=== PATIENT | female | born 1975 | race Caucasian/White ===

== ENCOUNTER 2018-01-29 15:04 | Emergency (ER) | payer BC ==
[2018-01-29 15:20] VITALS: TEMP 98.6; BMI 30.9
[2018-01-29] MEDS ORDERED: SODIUM CHLORIDE 0.9% 500 ML INFUS.BAG IV ONE (16:35)
--- NOTE | 2018-01-29 16:36 | PDOC ---
History of Present Illness - General History Source: Patient Exam Limitations: No Limitations - History of Present Illness Initial Comments: 01/29/18 16:48 The patient is a 42 year old female, with a significant past medical history of ulcerative colitis, GERD, arthritis and hypertension, who presents to the emergency department with dizziness and lightheadedness, sent from Urgent Care for abnormal EKG evaluation. Patient reports she recently started the Keto diet and has been taking dietary supplements a fat burner over the past week. Patient reports she has lost 9 pounds since the start of her diet. However, patient reports she noted mild jaw, ear, and chest discomfort since starting her diet. Patient describes her chest discomfort as a pressure with associated sob with exertion. At the time, the patient had an ECG done which was negative. However, today patient reports new onset of lightheadedness when bending over and dizziness as if the room were spinning with head movement. Patient reports her dizziness was similar to her previous vertigo episodes. However, on evaluation at urgent care patient had an EKG, which revealed changes since last week. The patient denies any recent fever, chills, cough, or headache. She reports some nausea and loose stools since starting her diet, but denies any abdominal pain, vomiting, diarrhea, constipation, melena, or hematochezia. She denies any recent travel or sick contacts. Patient denies any OCP use, or history of blood clots/DVT/ cardiac issues. Allergies: Codeine Past Surgical History: Ovarian cyst removal, bilateral lumpectomy Social History: Non smoker. No ETOH or recreational drug use Wire Splicer: Dr. Madden <Kosta Murcia - Last Filed: 01/29/18 16:49> <Erin Rice - Last Filed: 01/29/18 18:21> - General Chief Complaint: Lightheaded Stated Complaint: DIZZINESS, ABNORMAL EKG Time Seen by Provider: 01/29/18 16:15 Past History <Kosta Murcia - Last Filed: 01/29/18 16:49> - Past Medical History COPD: No GI Disorders: Yes (REFLUX) HTN: Yes - Suicide/Smoking/Psychosocial Hx Smoking History: Former smoker Have you smoked in the past 12 months: No Information on smoking cessation initiated: No Hx Alcohol Use: No Drug/Substance Use Hx: No Substance Use Type: None Hx Substance Use Treatment: No <Erin Rice - Last Filed: 01/29/18 18:21> - Past Medical History Allergies/Adverse Reactions: Allergies Allergy/AdvReac Type Severity Reaction Status Date / Time codeine AdvReac Mild change Unverified 01/29/18 15:20 mental status Home Medications: Ambulatory Orders Balsalazide Disodium 2,250 mg PO BID 07/29/15 Omeprazole [Prilosec (RX)] 20 mg PO DAILY 07/29/15 Azathioprine [Imuran] 50 mg PO DAILY 01/29/18 Valsartan [Diovan] 80 mg PO DAILY 01/29/18 Review of Systems - Review of Systems Able to Perform ROS?: Yes Comments:: 01/29/18 16:49 GENERAL/CONSTITUTIONAL: No fever or chills. No weakness. no sweats. HEAD, EYES, EARS, NOSE AND THROAT: +Ear and jaw discomfort. No change in vision or hearing. No ear discharge. No sore throat pain. No difficulty swallowing. No congestion. CARDIOVASCULAR: +Chest pressure, mild sob, lightheadedness. No palpitations, syncope or edema. RESPIRATORY: +Mild sob with exertion. No cough, wheezing, or hemoptysis. GASTROINTESTINAL: +Nausea. No vomiting. No diarrhea or constipation. No bloody stools. GENITOURINARY: No hematuria, dysuria, frequency, urgency or other changes. MUSCULOSKELETAL: No joint or muscle swelling or pain. No neck or back pain. SKIN: No rash or changes in skin color or lesions. NEUROLOGIC: +Vertigo. No headache, loss of consciousness, or change in strength /sensation. No gait instability. ENDOCRINE: No increased thirst. No abnormal weight or appetite change or intolerance to heat/cold. HEMATOLOGIC/LYMPHATIC: No anemia, easy bruising/bleeding, or history of blood clots. ALLERGIC/IMMUNOLOGIC: No hives or skin allergy. All other systems reviewed and negative, or as documented in HPI. <Kosta Murcia - Last Filed: 01/29/18 16:49> *Physical Exam - Vital Signs Last Vital Signs Temp Pulse Resp BP Pulse Ox 98.6 F 95 H 20 152/94 99 01/29/18 15:13 01/29/18 15:13 01/29/18 15:13 01/29/18 15:13 01/29/18 15:13 - Physical Exam Comments: 01/29/18 16:49 General: Well appearing, awake and alert, NAD. HEENT: NCAT, PERRL, EOMI, clear conjunctiva, anicteric, moist mucus membranes, clear oropharynx, no oral lesions.. Airway patent, normal phonation Neck: neck supple, FROM, no JVD, LAD or masses Lungs: CTAB, normal and even respirations, no respiratory distress Heart: RRR, no murmurs, 2+ peripheral pulses throughout, no peripheral edema Abdomen: soft, NTND, no peritoneal signs. No CVAT Back: nontender, normal inspection and ROM MSK: no edema, LOMBARDI x4, ROM intact. No clubbing or cyanosis. normal bulk and tone. Neuro: alert, oriented appropriately; no focal neurologic deficits. SILT, 5/5 distal and prox strength in all extrem. Skin: warm and well perfused, cap refill <2 sec, normal color; no rash <Kosta Murcia - Last Filed: 01/29/18 16:49> - Vital Signs Last Vital Signs Temp Pulse Resp BP Pulse Ox 98.6 F 95 H 20 152/94 99 01/29/18 15:13 01/29/18 15:13 01/29/18 15:13 01/29/18 15:13 01/29/18 15:13 <Erin Rice - Last Filed: 01/29/18 18:21> Heart Score/ECG Review - History History: Slightly suspicious - Electrocardiogram EKG: Normal - Age Age: </= 45 - Risk Factors Risk Factors Heart Score: Yes Hx Hypertension Based on the list above the patient has:: 1-2 risk factors - Troponin Troponin: </= normal limit - Score Heart Score - Total: 1 - ECG Intrepretation Rhythm: Regular Rhythm - [place]: Normal - ECG Impressions Normal ECG: Yes Comment:: 01/29/18 17:29 EKG normal sinus rhythm with upright T waves, normal axis, normal narrow QRS and normal intervals, no ST segment derangements. <Erin Rice - Last Filed: 01/29/18 18:21> ED Treatment Course - LABORATORY CBC & Chemistry Diagram: 01/29/18 16:50 01/29/18 16:50 - RADIOLOGY Radiology Studies Ordered: Category Date Time Status CHEST PA & LAT [RAD] Stat Radiology 01/29/18 16:07 Ordered <Erin Rice - Last Filed: 01/29/18 18:21> Medical Decision Making - Medical Decision Making 01/29/18 17:29 42 YOF with GERD, UC on azathioprine and remission, HTN, vertigo and arthritis presenting with dizziness/lightheadedness, sent in from [facility] for abnormal EKG. today, when she was bending down, felt lightheadedness, sat down and felt improved. +vertigo with head movements. No trauma or recent illnesses. About 3 days ago, experienced chest pressure and sob with mild exertion; no OCP use ( IUD in place), no history of blood clots/DVT or PE, no syncope or leg swelling. Of note, has been on Ketogenic diet x 1 week, new dietary changes with weight loss of 9 lbs; otherwise staying hydrated. Meds and supplements she has been taking include merrick super with biotin, fat burner with decaff green tea extract , calcium and Vit D/magnesium, omega 3 with antioxidants. No caffeine use or overuse. DDx includes chest pain NOS, ACS, PE, costochondritis, GERD, pleurisy, anxiety, esophageal spasm. Medication side effect, orthostatic changes, dehydration. Low suspicion for pulmonary embolism or dissection. Low Wells score at Zero, so low risk and low clinical suspicion based on Gestalt for PE/VTE, defer D dimer at this time given clinical appearance. There is alternative etiology, with recent ketogenic diet and new supplements that may be contributing to her symptoms. Vital signs reviewed, wnl. notable for heart rate 90s, normotensive, SpO2 100% on RA. Plan: CBC, CMP, lipase, ECG, trop, bnp, CXR laboratory results and imaging reviewed, basic labs and lytes wnl, notable also for neg trop and BNP, essentially ruling out CHF/cardiomyopathy. EKG normal sinus rhythm with upright T waves, normal axis, normal narrow QRS and normal intervals, no ST segment derangements. No Wellens sign on 2 EKGs performed in the department. Low Heart score 1, so low risk for MACE <1.7% at 30 days. one trop sufficient which is neg, prior ekgs also reviewed from urgent care, isolated and no reciprocals or reproduced appearance. reassuringly, had treadmill stress test in October 2017 that was also normal CXR clear, no effusion or cardiomegaly or infiltrate. Given IVF here, VS wnl, HR downtrending, feels well, no respiratory distress, reassurance given. Neg orthostatics. tylenol for jaw pain/sinus pressure. She does appear anxious, but no cp or dyspnea. Nontoxic appearing, in stable condition. Discharge in stable condition, has date puller appt in [address] Mohan, advised to avoid precipitants and triggers and new supplements that can precipitate her symptoms, avoid until cardiology clearance and PMD followup (Dr. Madden). Patient and family made aware of impression and plan, return precautions discussed (including but not limited to worsening pain or symptoms), fevers, or signs of infection, chest pain, respiratory distress, inability to tolerate oral intake, dehydration, syncope, or neurologic changes worse dizziness/vertigo). Follow up with PMD and/or specialist as recommended, follow up information provided, take medications as instructed for duration of time. continue with supportive care, avoid triggers and precipitants. 01/29/18 17:30 01/29/18 17:31 01/29/18 17:55 01/29/18 18:19 <Erin Rice - Last Filed: 01/29/18 18:21> *DC/Admit/Observation/Transfer - Attestations Scribe Attestion: 01/29/18 16:49 Documentation prepared by Kosta Murcia, acting as medical records manager for Erin Rice MD. <Kosta Murcia - Last Filed: 01/29/18 16:49> - Discharge Dispostion Decision to Admit order: No <Erin Rice - Last Filed: 01/29/18 18:21> Diagnosis at time of Disposition: Dizziness, Medication side effect - Discharge Dispostion Disposition: HOME Condition at time of disposition: Stable - Referrals Referrals: Amy Madden [Staff Physician] - Yeyo Mohan MD [Staff Physician] - - Patient Instructions Printed Discharge Instructions: DI for Dizziness-Nonvertigo Additional Instructions: Follow up with your physician and consultants as instructed (date puller), call sooner for appointment, take your medications as instructed including motrin/tylenol as needed. do not take any additional supplements for your ketogenic diet until clearance. rest and hydration advised Return if worsening symptoms including fevers, headache, vomiting, visual or hearing disturbances, worse headaches, dizzy/vertigo, abdominal pain, chest pain , shortness of breath, syncope or worsening concerning symptoms. Print Language: LUXEMBOURGER
[2018-01-29 16:59] LABS: BASO % 1.1 % (0-2.0); EOS % 1.9 % (0-4.5); HEMATOCRIT 43.6 % (32.4-45.2); HEMOGLOBIN 14.6 GM/dL (10.7-15.3); LYMPH % 12.1 % (8-40); MCH 30.2 pg (25.7-33.7); MCHC 33.5 g/dl (32.0-36.0); MEAN CELL VOLUME 90.2 fl (80-96); MEAN PLT VOLUME 7.9 fl (7.5-11.1); MONO % 5.4 % (3.8-10.2); NEUT % 79.5 % (42.8-82.8); PLATELET COUNT 308 K/MM3 (134-434); RBC 4.84 M/mm3 (3.60-5.2); RDW 13.3 % (11.6-15.6)
[2018-01-29 17:21] LABS: ALBUMIN 4.1 g/dl (3.4-5.0); ANION GAP 11 (8-16); BILIRUBIN,TOTAL 0.5 mg/dL (0.2-1.0); BLOOD UREA NITROGEN 18 mg/dL (7-18); CALCIUM 9.3 mg/dL (8.5-10.1); CHLORIDE 106 mmol/L (98-107); CO2 22 mmol/L (21-32); CREATININE 0.9 mg/dL (0.55-1.02); GLUCOSE,RANDOM 79 mg/dL (74-106); POTASSIUM 4.1 mmol/L (3.5-5.1); SGOT/AST 16 U/L (15-37); SGPT/ALT 23 U/L (12-78); SODIUM 139 mmol/L (136-145); TOT PROT 8.2 g/dl (6.4-8.2)
[2018-01-29 17:22] LABS: ALK PHOS 51 U/L (45-117)
[2018-01-29] MEDS ORDERED: ACETAMINOPHEN 325 MG TABLET (FP) PO ONE (18:22)
[2018-01-29 18:59] VITALS: BP 145/98; PULSE 90
--- NOTE | 2018-01-30 14:17 | EKG ---
Test Reason : Blood Pressure : / mmHG Vent. Rate : 087 BPM Atrial Rate : 087 BPM P-R Int : 130 ms QRS Dur : 080 ms QT Int : 350 ms P-R-T Axes : 061 046 042 degrees QTc Int : 421 ms NORMAL SINUS RHYTHM NORMAL ECG WHEN COMPARED WITH ECG OF 04-MAR-2010 03:53, NO SIGNIFICANT CHANGE WAS FOUND Confirmed by Russ Hannon ([id number]) on 01/30/2018 2:17:17 PM Referred By: Confirmed By:Russ Hannon
== END 2018-01-29 18:59 | disposition home or self-care (01) ==
LOC: JER 15:04
DX: R42 Dizziness and giddiness (principal); T50.995A Adverse effect of other drugs, medicaments and biological substances, initial encounter; K21.9 Gastro-esophageal reflux disease without esophagitis; I10 Essential (primary) hypertension; M12.9 Arthropathy, unspecified; Z87.19 Personal history of other diseases of the digestive system
CPT/HCPCS: 36415; 71046-TC-FY; 80053; 83690; 83880; 84443; 84484; 84703; 85025; 93005; 93010; 99284-25